=== PATIENT | male | born 1970 | race Caucasian/White ===

== ENCOUNTER 2016-11-27 16:09 | Emergency (ER) | payer SELFPAY ==
[~2016-11-27] VITALS: Ht 167.6 cm; Wt 74.7 kg
[2016-11-27 16:30] VITALS: Ht 167.6 cm; Wt 74.7 kg
[2016-11-27] MEDS ORDERED: KETOROLAC TROMETHAMINE 30 MG/ML VIAL IV STA (18:11)
[2016-11-27] MEDS ORDERED: ONDANSETRON INJ 2 MG/ML 2 ML VIAL IV STA (18:11)
[2016-11-27] MEDS ORDERED: SODIUM CHLORIDE 0.9% 1000ML 1,000 ML IV STA (18:11)
[2016-11-27 18:42] LABS: BASO % 0.3 %; BASO ABS # 0.04 K/uL (0-0.2); COMPLETE YES; EOS % 0.1 %; HEMATOCRIT 49.3 % (42-52); IG% 0.2 %; LYMPH % 9.2 %; LYMPH ABS # 1.13 K/uL (1.2-3.4); MEAN CELL VOLUME 85.7 fL (80-100); MEAN CORPUSCULAR HEMOGLOBIN 28.7 pg (25-34); MEAN CORPUSCULAR HGB CONC 33.5 g/dl (32-36); MEAN PLATELET VOLUME 10.5 fL (7.4-10.4); MONO % 4.7 %; NEUT % 85.5 %; PLATELET COUNT 297 K/uL (130-400); RED BLOOD COUNT 5.75 M/uL (4.7-6.1); WHITE BLOOD COUNT 12.34 K/uL (4.8-10.8)
--- NOTE | 2016-11-27 18:54 | DIAGNOSTIC IMAGING REPORT ---
CT SCAN OF THE ABDOMEN AND PELVIS WITHOUT IV CONTRAST CLINICAL HISTORY: Flank pain. COMPARISON STUDY: No priors. TECHNIQUE: CT scan of the abdomen and pelvis is performed from the lung bases to the proximal femora. Images are reviewed in the axial, sagittal, and coronal planes. IV contrast was not administered for this examination. Automated dose control exposure was utilized. CT DOSE: 873.74 mGy.cm FINDINGS: Lung bases: The heart is normal in size and without pericardial effusion. The lung bases are clear. Liver: The unenhanced liver is normal in size, contour, and attenuation. There is no intrahepatic biliary ductal dilatation. Gallbladder: Unremarkable. Spleen: Normal in size and attenuation. Pancreas: Unremarkable. Adrenal glands: Unremarkable. Kidneys: The unenhanced kidneys are normal in size. There is a 7 mm obstructing calculus identified in the mid right ureter at the level of L3-L4 seen on image #231. This causes moderate right hydroureteronephrosis. There is associated right-sided perinephric stranding and fluid. An additional 5 mm nonobstructing calculus is seen in the right upper pole. A 3 mm nonobstructing calculus is seen in the left lower pole. There is no left-sided hydronephrosis. There is no evidence of contour deforming renal mass lesion. Abdominal vasculature: The abdominal aorta is normal in course and caliber. Stomach and bowel: There is a small gastric diverticulum seen in the posterior fundal region on axial image #84. The stomach and duodenum are normal in configuration. The small bowel and colon are normal in course and caliber. The appendix is well-visualized and normal. Peritoneum: There is no intraperitoneal free air or abdominal ascites. Lymphadenopathy: None. Pelvic viscera: The bladder, prostate, and seminal vesicles are normal as imaged. Skeletal structures: No lytic or blastic lesions are seen. There is heterotopic ossification versus a remote avulsion injury seen along the left ilium on axial image #379. IMPRESSION: 1. There is a 7 mm obstructing calculus in the mid right ureter. This causes moderate right hydroureteronephrosis. 2. Additional bilateral nonobstructing renal calculi are discussed above. 3. A small gastric diverticulum is incidentally noted. 4. Additional findings as above. Electronically signed by: Sean Robles M.D. 11/27/2016 6:52 PM Dictated Date/Time: 11/27/2016 6:47 PM
[2016-11-27 19:07] LABS: BUN/CREATININE RATIO 5.8 (10-20); CALCIUM 9.5 mg/dl (8.5-10.1); CREATININE 1.1 mg/dl (0.60-1.40); POTASSIUM 3.8 mmol/L (3.5-5.1)
[2016-11-27] MEDS ORDERED: TAMS0.4C38 PO (19:40)
[2016-11-27] MEDS ORDERED: OXYC-57 PO (19:40)
[2016-11-27] MEDS ORDERED: ONDA4TAB10 SL (19:40)
--- NOTE | 2016-11-27 19:41 | EMERGENCY ROOM VISIT NOTE ---
History Report prepared by Diegoibenma: Elin Sinha Under the Supervision of: Dr. Dio Childers D.O. First contact with patient: 18:08 Chief Complaint: FLANK PAIN Stated Complaint: PAIN IN RIGHT SIDE DOWN TO TEST - VOMITING History of Present Illness The patient is a 46 year old male who presents to the Emergency Room with complaints of severe and worsening right flank pain starting about 5 hours ago. He has pain radiation towards the groin. He also complains of nausea and vomiting. The patient has a history of kidney stones occurring about 12 years ago and reports similar symptoms today. He denies fevers, chills, or any other complaints. Source of History: patient Onset: about 5 hours ago Position: other (right flank) Symptom Intensity: severe Timing: worsening Associated Symptoms: + nausea, + vomiting, No fevers, No chills Review of Systems See HPI for pertinent positives & negatives. A total of 10 systems reviewed and were otherwise negative. Past Medical & Surgical Medical Problems: (1) Kidney stones Family History Patient reports no known family medical history. Social History Smoking Status: Current Every Day Smoker Marital Status: Occupation Status: employed Current/Historical Medications Scheduled Ondasetron Odt (Zofran Odt), 4 MG SL Q6H Tamsulosin Hcl (Flomax), 0.4 MG PO HS Scheduled PRN Oxycodone/Acetaminophen 5MG/325MG (Percocet 5MG/325MG), 1 TAB PO Q6H PRN for Pain Physical Exam Vital Signs Date Time Temp Pulse Resp B/P (MAP) Pulse Ox O2 Delivery O2 Flow Rate FiO2 11/27/16 18:35 57 18 143/88 96 Room Air 11/27/16 16:30 36.8 63 18 165/97 98 Room Air Physical Exam CONSTITUTIONAL/VITAL SIGNS: Reviewed / noted above. GENERAL: Non-toxic in appearance. INTEGUMENTARY: Warm, dry, and [place]. HEAD: Normocephalic. EYES: without scleral icterus or trauma. ENT/OROPHARYNX: clear and moist. LYMPHADENOPATHY/NECK: Is supple without lymphadenopathy or meningismus. RESPIRATORY: Lungs clear and equal. CARDIOVASCULAR: Regular rate and rhythm. GI/ABDOMEN: Soft and nontender. No organomegaly or pulsatile mass. No rebound or guarding. Normal bowel sounds. EXTREMITIES: Warm and well perfused. BACK: Right CVA tenderness. NEUROLOGICAL: Intact without focal deficits. PSYCHIATRIC: normal affect. MUSCULOSKELETAL: Normally developed with good muscle tone. Medical Decision & Procedures ER Provider Diagnostic Interpretation: CT results as stated below per my review and radiologist interpretation: CT SCAN OF THE ABDOMEN AND PELVIS WITHOUT IV CONTRAST CLINICAL HISTORY: Flank pain. COMPARISON STUDY: No priors. TECHNIQUE: CT scan of the abdomen and pelvis is performed from the lung bases to the proximal femora. Images are reviewed in the axial, sagittal, and coronal planes. IV contrast was not administered for this examination. Automated dose control exposure was utilized. CT DOSE: 873.74 mGy.cm FINDINGS: Lung bases: The heart is normal in size and without pericardial effusion. The lung bases are clear. Liver: The unenhanced liver is normal in size, contour, and attenuation. There is no intrahepatic biliary ductal dilatation. Gallbladder: Unremarkable. Spleen: Normal in size and attenuation. Pancreas: Unremarkable. Adrenal glands: Unremarkable. Kidneys: The unenhanced kidneys are normal in size. There is a 7 mm obstructing calculus identified in the mid right ureter at the level of L3-L4 seen on image #231. This causes moderate right hydroureteronephrosis. There is associated right-sided perinephric stranding and fluid. An additional 5 mm nonobstructing calculus is seen in the right upper pole. A 3 mm nonobstructing calculus is seen in the left lower pole. There is no left-sided hydronephrosis. There is no evidence of contour deforming renal mass lesion. Abdominal vasculature: The abdominal aorta is normal in course and caliber. Stomach and bowel: There is a small gastric diverticulum seen in the posterior fundal region on axial image #84. The stomach and duodenum are normal in configuration. The small bowel and colon are normal in course and caliber. The appendix is well-visualized and normal. Peritoneum: There is no intraperitoneal free air or abdominal ascites. Lymphadenopathy: None. Pelvic viscera: The bladder, prostate, and seminal vesicles are normal as imaged. Skeletal structures: No lytic or blastic lesions are seen. There is heterotopic ossification versus a remote avulsion injury seen along the left ilium on axial image #379. IMPRESSION: 1. There is a 7 mm obstructing calculus in the mid right ureter. This causes moderate right hydroureteronephrosis. 2. Additional bilateral nonobstructing renal calculi are discussed above. 3. A small gastric diverticulum is incidentally noted. 4. Additional findings as above. Electronically signed by: Sean Robles M.D. 11/27/2016 6:52 PM Dictated Date/Time: 11/27/2016 6:47 PM Laboratory Results 11/27/16 18:19 Red Blood Count 5.75, Mean Corpuscular Volume 85.7, Mean Corpuscular Hemoglobin 28.7, Mean Corpuscular Hemoglobin Concent 33.5, Mean Platelet Volume 10.5, Neutrophils (%) (Auto) 85.5, Lymphocytes (%) (Auto) 9.2, Monocytes (%) (Auto) 4.7, Eosinophils (%) (Auto) 0.1, Basophils (%) (Auto) 0.3, Neutrophils # (Auto) 10.55, Lymphocytes # (Auto) 1.13, Monocytes # (Auto) 0.58, Eosinophils # (Auto) 0.01, Basophils # (Auto) 0.04 11/27/16 18:19 Test 11/27/16 18:19 11/27/16 19:39 White Blood Count 12.34 K/uL (4.8-10.8) Red Blood Count 5.75 M/uL (4.7-6.1) Hemoglobin 16.5 g/dL (14.0-18.0) Hematocrit 49.3 % (42-52) Mean Corpuscular Volume 85.7 fL (80-100) Mean Corpuscular Hemoglobin 28.7 pg (25-34) Mean Corpuscular Hemoglobin Concent 33.5 g/dl (32-36) Platelet Count 297 K/uL (130-400) Mean Platelet Volume 10.5 fL (7.4-10.4) Neutrophils (%) (Auto) 85.5 % Lymphocytes (%) (Auto) 9.2 % Monocytes (%) (Auto) 4.7 % Eosinophils (%) (Auto) 0.1 % Basophils (%) (Auto) 0.3 % Neutrophils # (Auto) 10.55 K/uL (1.4-6.5) Lymphocytes # (Auto) 1.13 K/uL (1.2-3.4) Monocytes # (Auto) 0.58 K/uL (0.11-0.59) Eosinophils # (Auto) 0.01 K/uL (0-0.5) Basophils # (Auto) 0.04 K/uL (0-0.2) RDW Standard Deviation 41.3 fL (36.4-46.3) RDW Coefficient of Variation 13.1 % (11.5-14.5) Immature Granulocyte % (Auto) 0.2 % Immature Granulocyte # (Auto) 0.03 K/uL (0.00-0.02) Anion Gap 8.0 mmol/L (3-11) Est Creatinine Clear Calc Drug Dose 74.9 ml/min Estimated GFR () 92.2 Estimated GFR (Non- 79.5 BUN/Creatinine Ratio 5.8 (10-20) Calcium Level 9.5 mg/dl (8.5-10.1) Total Bilirubin 0.8 mg/dl (0.2-1) Direct Bilirubin 0.1 mg/dl (0-0.2) Aspartate Amino Transf (AST/SGOT) 11 U/L (15-37) Alanine Aminotransferase (ALT/SGPT) 22 U/L (12-78) Alkaline Phosphatase 84 U/L (45-117) Total Protein 7.5 gm/dl (6.4-8.2) Albumin 4.3 gm/dl (3.4-5.0) Lipase 115 U/L (73-393) Laboratory results as stated above per my review. Medications Administered Medications (Trade) Dose Ordered Sig/Pa Route Start Time Stop Time Status Last Admin Dose Admin Sodium Chloride 1,000 ml @ 999 mls/hr Q1H1M STAT IV 11/27/16 18:11 11/27/16 19:11 DC 11/27/16 18:11 999 MLS/HR Ondansetron HCl (Zofran Inj) 4 mg NOW STAT IV 11/27/16 18:11 11/27/16 18:12 DC 11/27/16 18:32 4 MG Ketorolac Tromethamine (Toradol Inj) 30 mg NOW STAT IV 11/27/16 18:11 11/27/16 18:12 DC 11/27/16 18:32 30 MG ED Course 1808: Previous medical records were reviewed. The patient was evaluated in room A10. A complete history and physical examination was performed. 1810: Toradol Inj 30 mg IV, Zofran Inj 4 mg IV, Sodium Chloride 1000 ml @ 999 mls/hr IV 1944: Flomax Cap 0.4 mg PO, Oxycodone/Acetaminophen 1 home pack PO 1945: On reevaluation, the patient is resting comfortably. I discussed the results and findings with the patient. He verbalized agreement of the treatment plan. He was discharged home. Medical Decision Medication Reconciliation: I attest that I have personally reviewed the patient' s current medication list. Patient was found to have a slightly elevated blood pressure due to circumstances. I do not believe that the patient requires hypertension monitoring. Differential considered: pancreatitis, hepatitis, or acute cholecystitis, AAA, UTI, pyelonephritis, kidney stones, appendicitis, diverticulitis, shingles, bowel obstruction mesenteric ischemia, intussusception,hernia, testicular torsion. This is a 46-year-old male who presents to the ED with a chief complaint of right flank pain. The patient states that his symptoms started about an hour and a half ago. He states that the pain radiates into his right groin. He reports nausea and vomiting associated with his pain. He reports a history of kidney stones. The patient has no other significant complaints. No fevers or chills. No urinary symptoms. No chest pains or shortness of breath. His exam revealed some right CVA tenderness. A CT scan of the abdomen pelvis reveals a 7 mm right mid ureteral calculus with moderate [place]. Blood work was unremarkable. The patient was told results. He was treated with IV Toradol, IV Zofran and IV fluids. He was given oral Flomax. He is felt to be stable for discharge and outpatient follow-up with urology. Impression Primary Impression: Renal colic Additional Impression: Right ureteral calculus Scribe Attestation The scribe's documentation has been prepared under my direction and personally reviewed by me in its entirety. I confirm that the note above accurately reflects all work, treatment, procedures, and medical decision making performed by me. Departure Information Dispostion Home / Self-Care Prescriptions Oxycodone/Acetaminophen 5MG/325MG (PERCOCET 5MG/325MG) Tab 1 TAB PO Q6H Y for Pain, #20 TAB Prov: Dio Childers D.O. 11/27/16 Tamsulosin Hcl (FLOMAX) 0.4 Mg Cap 0.4 MG PO HS for 10 Days, #10 CAP Prov: Dio Childers D.O. 11/27/16 Ondasetron Odt (ZOFRAN ODT) 4 Mg Tab 4 MG SL Q6H for Nausea, #15 TAB Prov: Dio Childers D.O. 11/27/16 Referrals No Doctor, Assigned (PCP) Walter Muñoz M.D. Forms HOME CARE DOCUMENTATION FORM, IMPORTANT VISIT INFORMATION Patient Instructions Kidney Stones, My [facility] Additional Instructions Flomax as prescribed. Strain urine for stone. Take ibuprofen 600 mg every 6 hours for pain. Percocet as prescribed for severe pain. No driving within 6 hours of use. Do not take additional Tylenol while taking Percocet. Follow-up with urology Dr. Muñoz. Call tomorrow for appointment. Problem Qualifiers
[2016-11-27] MEDS ORDERED: TAMSULOSIN HCL 0.4 MG CAP PO ONE (19:45)
[2016-11-27] MEDS ORDERED: PERCOCET HOME PACK PO ONE (19:45)
[2016-11-27 19:55] LABS: URINE APPEARANCE CLOUDY (CLEAR); URINE BILIRUBIN NEG (NEG); URINE COLOR DK YELLOW; URINE EPITHELIAL CELL AUTO >30 /lpf (0-5); URINE NITRITE NEG (NEG); URINE PH 6.5 (4.5-7.5); URINE SPECIFIC GRAVITY 1.021 (1.000-1.030); UROBILINOGEN NEG (NEG); ZZUR CULT IF INDIC CLEAN CATCH NO
[2016-11-27 19:56] LABS: MANUAL MICROSCOPIC REQUIRED? NO; REVIEW REQ? YES
[2016-11-27 20:06] VITALS: BP 143/88; PULSE 57; TEMP 36.8; O2SAT 96
== END 2016-11-27 20:07 | disposition home or self-care (01) ==
LOC: C.EDB 16:11 → C.EDA 20:07
DX: N20.1 Calculus of ureter (principal); R11.2 Nausea with vomiting, unspecified; Z87.442 Personal history of urinary calculi; F17.200 Nicotine dependence, unspecified, uncomplicated